=== PATIENT | male | born 1980 | race Caucasian/White ===

== ENCOUNTER → 2017-01-06 | Outpatient (REF) | payer OTHER ==
[2017-01-06 14:18] LABS: NON PROGRESSIVE MOTILITY (c) 9 %; PROGRESSIVE MOTILITY (a) 69 % (>=32)
[2017-01-06 14:19] LABS: % NORMAL FORMS 20 % (>=4); IMMOTILITY 22 %; SPERM# 75.1 M/Ejac (>=39); TOTAL FUNCTIONAL 20.3 M/Ejac.; TOTAL MOTILITY 78 % (>=40); TOTAL PROGRESSIVE SPERM 51.8 M/Ejac.
== END ==
LOC: M LAB REF 13:43
PROVIDERS: ATTEND Physician Assistant
DX: N46.9 Male infertility, unspecified (principal)

== ENCOUNTER → 2017-11-22 | Outpatient (REF) | payer OTHER ==
[2017-11-22 16:17] LABS: SEMEN APPEARANCE OPAQUE (OPAQUE)
[2017-11-22 16:18] LABS: % NORMAL FORMS 9 % (>=4); IMMOTILITY 54 %; NON PROGRESSIVE MOTILITY (c) 6 %; PROGRESSIVE MOTILITY (a) 40 % (>=32); SEMEN VISCOSITY LIQUID (LIQUID); SEMEN pH 7.5 (7.0-8.0); SPERM CONCENTRATION 98.2 M/ml (>=15.0); TOTAL MOTILITY 46 % (>=40); WBC CONCENTRATION <=1 M/ml (<=1 M/ml)
[2017-11-22 16:19] LABS: SPERM# 196.3 M/Ejac (>=39); TOTAL FUNCTIONAL 16.4 M/Ejac.; TOTAL PROGRESSIVE SPERM 78.7 M/Ejac.
== END ==
LOC: M LAB REF 15:35
DX: N46.8 Other male infertility (principal)
CPT/HCPCS: 89320

== ENCOUNTER → 2017-12-30 | Outpatient (CLI) | payer OTHER | LOC: M CARPUL 10:24 | DX: R60.9 Edema, unspecified (principal) ==